=== PATIENT | male | born 1970 | race Caucasian/White ===

== ENCOUNTER 2021-07-08 16:32 | Emergency (ER) | payer OTHER, SELFPAY ==
[2021-07-08 16:33] VITALS: BP 165/91; PULSE 88; RESP 18; TEMP 37; O2SAT 96; BMI 38.7
--- NOTE | 2021-07-08 16:42 | HMH.EDUPEXT ---
ED Disposition Clinical Impression: Laceration of forearm with foreign body Qualifiers: Encounter type: initial encounter Laterality: left Qualified Code(s): S51.822A - Laceration with foreign body of left forearm, initial encounter Disposition: Home, Self-Care Condition on Discharge: Fair Instructions: How to Care for a Laceration After Repair, DI for Laceration Repair Additional Instructions: Keep the wound clean and dry. May briefly wash the wound and pat it dry. Follow-up with your primary care physician in about 3 days for a wound check. Have the sutures removed in approximately 10 days. Return to the emergency department if you feel worse in any way. Limit the use of your right upper extremity until the stitches have been taken out. Do not soak the affected area in water. Prescriptions: Ketorolac Tromethamine [Toradol 10mg tablet] 10 mg PO Q6HP PRN #8 tab MDD 40mg/day PRN Reason: Pain Transmission Status: Received by [id number] Referrals: Demetris Nelson MD [Primary Care Provider] - - Critical Care Critical Care Time: No Attestation: On , the high probability of a clinically significant, sudden or life threatening deterioration of the following system(s) required my full and direct attention, intervention and personal management. The time I documented below is in addition to time spent performing reported procedures but includes the following listed in this critical care notation. Medical Decision Making - Medical Records Medical records reviewed: Yes: I reviewed the patient's medical records. - Rell Inquiry Pt receiving controlled substance: No Vital Signs: 07/08/21 16:33 Temperature 98.6 F Temperature Source Oral Pulse Rate [Right] 88 Respiratory Rate 18 Blood Pressure [Right Arm] 165/91 H Blood Pressure Mean [Right Arm] 115 02 Sat by Pulse Oximetry 96 Oxygen Delivery Method Room Air Orders (Tests/Meds): ED MEDICATIONS Discontinued Medications Generic Name Dose Route Start Last Admin Trade Name Freq PRN Reason Stop Dose Admin Ketorolac Tromethamine 60 mg 07/08/21 17:48 07/08/21 18:00 Ketorolac 60mg/2ml Vial IM 07/08/21 17:49 60 mg ONCE ONE Administration Tetanus/Reduced Diphtheria/Acell Pertussis 0.5 ml 07/08/21 18:00 07/08/21 18:01 Tet/Diphth/Pert-Adult 0.5ml Syringe IM 07/08/21 18:01 0.5 ml .ONCE ONE Administration - Radiology Data #1 Image(s): Forearm Image Reviewed: Yes I reviewed the patient's radiology results, Yes I reviewed the patient's radiology image, Yes I have reviewed radiologist's interpretation Preliminary Findings: Abnormal (Laceration with foreign body contamination. No fracture or dislocation.) Upper Extremity HPI - General Chief Complaint: Extremity Injury, Upper Stated Complaint: ao 07/08@1615 INC TO l HAND Time Seen by Provider: 07/08/21 16:43 Mode of Arrival: Ambulatory Source of Information: Patient - History of Present Illness HPI narrative: Presents to the emergency department complaining of a left forearm injury that he sustained while working on his car. He states that the car frame struck his forearm and tore the skin. He denies any other injuries. The injury happened shortly prior to arrival today. The patient states that he is right-hand dominant. - Related Data Previous Rx's Medication Instructions Recorded Ketorolac Tromethamine [Toradol 10 mg PO Q6HP PRN #8 tab MDD 07/08/21 10mg tablet] 40mg/day Allergies Allergy/AdvReac Type Severity Reaction Status Date / Time No Known Drug Allergies Allergy Unknown Verified 07/08/21 17:05 [NO KNOWN DRUG ALLERGIES] [facility] History - Hepatitis A Screen Drug use history?: No Attestation statement:: This patient has been screened for Hepatitis A risk factors. I have reviewed the patient's past medical history: Yes ROS Obtained: Yes All systems reviewed & no additional complaints Physical Exam - General Gener
--- NOTE | 2021-07-08 16:44 | XR_ITS ---
PROCEDURE INFORMATION: Exam: XR Left Forearm Exam date and time: 07/08/2021 4:44 PM Age: 50 years old Clinical indication: Injury or trauma; Other: Accident; Work related; Arm, lower; Left; Injury date: 07/08/1985; Injury details: Laceration distal, posterior forearm; Patient HX: Deep laceration from piece of metal at distal, posterior forearm TECHNIQUE: Imaging protocol: XR Left forearm. Views: 2 views. COMPARISON: No relevant prior studies available. FINDINGS: Bones/joints: No acute fracture dislocation or discrete bony destruction is seen.. Soft tissues: Soft tissue laceration with foreign body is demonstrated along the lateral aspect of the distal radius. IMPRESSION: Soft tissue laceration with foreign body is demonstrated along the lateral aspect of the distal radius.
--- NOTE | 2021-07-08 17:10 | PC.NURSE ---
PT to XR at this time.
--- NOTE | 2021-07-08 18:12 | PC.NURSE ---
wound care provided to left wrist & fingers.
[2021-07-08 18:21] VITALS: BP 125/81; PULSE 81; RESP 16; TEMP 36.8; O2SAT 95
== END 2021-07-08 18:23 | disposition home or self-care (01) ==
PROVIDERS: Emergency Provider Emergency Medicine; PCP Family Medicine
DX: S51.822A Laceration with foreign body of left forearm, initial encounter (principal); W22.8XXA Striking against or struck by other objects, initial encounter; Y92.69 Other specified industrial and construction area as the place of occurrence of the external cause; Y99.0 Civilian activity done for income or pay; Z23 Encounter for immunization
CPT/HCPCS: 12002; 73090; 90471; 90715; 96372; 99283

== ENCOUNTER 2021-10-01 10:00 | Outpatient (RCR) | payer OTHER, SELFPAY ==
--- NOTE | 2021-08-21 11:08 | HMH.OTOPEV ---
OT Inpatient Evaluation Rehab OT Outpatient Eval Start: 08/21/21 10:31 Freq: Status: Active Protocol: Document 08/21/21 10:31 ALEJANDRA (Rec: 08/21/21 11:07 ALEJANDRA [id number]) Electronically Signed By Gretchen Cabrera OT 08/21/21 10:31 Outpatient Therapy Subjective History Subjective History 50 year old male referred to skilled OP OT services for cellulitis of left wrist and crushing injury of left wrist. Patient injured left wrist during work after dropping a car frame on wrist on July 08. 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 X-ray completed on L wrist with no findings. Patient exhibit limited AROM of wrist, pain, decrease special delivery clerk strength, edema (1+ noted) and impaired sensation on dorsal area of hand. Chief Complaint Pain,Swelling,Weakness, Decreased Disciplinary Hearing Officer Strength Symptom Type Burning,Numbness,Tingling Symptoms Relieved By Elevation Symptoms Aggravated By Physical Activity Prior Functional Limitations None Current Functional Limitations Reaching,Lifting,Sleeping, Recreation Activity Symptom Description Constant and Continuous Level of pain today (0-10) 5 Pain scale - at its best (0-10) 5 Pain scale - at its worst (0-10) 8 Wrist/Hand Eval Wrist Range of Motion Left Wrist Extension Active Range of Motion ( 50 degrees) Wrist Flexion Active Range of Motion ( 40 degrees) Wrist Radial Deviation Active Range of 20 Motion (degrees) Wrist Ulnar Deviation Active Range of 20 Motion (degrees) Forearm Supination Active Range of 60 Motion (degrees) Forearm Pronation Active Range of Motion 90 (degrees) Wrist Manual Muscle Testing Left Wrist Extension Strength Grade 3- Fair- Wrist Flexion Strength Grade 3- Fair- Wrist Radial Deviation Strength Grade 3- Fair- Wrist Ulnar Deviation Strength Grade 3- Fair- Disciplinary Hearing Officer/Pinch Strength Right Disciplinary Hearing Officer Strength Measurement (lbs) 75 Left Disciplinary Hearing Officer Strength Measurement (lbs) 20 OT Outpatient Assessment Impairments Problems/Impairments Impaired Range of Motion, Impaired Strength,Impaired Lifting,Increased Edema, Subjective C/O Pain Prognosis Rehab Potential
== END 2021-10-01 10:05 | disposition home or self-care (01) ==
LOC: OT 10:00
PROVIDERS: Visit Provider Internal Medicine Adolescent Medicine
DX: S67.3 Crushing injury of wrist (principal); L03.114 Cellulitis of left upper limb
CPT/HCPCS: 97014; 97018; 97035; 97110; 97140; 97164; 97165; 97530; G0283

== ENCOUNTER 2022-05-08 11:00 | Outpatient (RCR) | payer OTHER, SELFPAY | END 2022-05-08 11:05 | disposition home or self-care (01) | LOC: OT 11:00 | PROVIDERS: Visit Provider Physician Assistant | DX: G56.02 Carpal tunnel syndrome, left upper limb (principal) | CPT/HCPCS: 97010; 97014; 97035; 97110; 97140; 97164; 97165; G0283 ==

== ENCOUNTER 2022-07-10 13:32 | Emergency (ER) | payer BC, SELFPAY ==
[2022-07-10 13:50] VITALS: BP 159/92; PULSE 105; RESP 22; TEMP 36.8; O2SAT 97; BMI 38.2
--- NOTE | 2022-07-10 14:14 | HMH.EDUTC ---
[facility] [place] Dis[place] Clinical Impression: Exposure to COVID-19 virus, Vertigo Disposition: Home, Self-Care Condition on Discharge: Good Instructions: DI for Vertigo, DI for COVID-19 (Suspected or Confirmed ), Preventing the Spread of Coronavirus Discharge Instructions Additional Instructions: *Monitor Temp, Over the counter Motrin or Tylenol as directed/as needed Tylenol every 4 hours and Motrin every 6 hours (as long as your family doctor has told you that you can take it) for fever or pain. and straight to ER if unable to lower temp less than 101.0 after medication given *Warm salt water gargles may help to soothe the throat *Throat Lozenges *Warm fluids like tea with honey may help to soothe the throat *Sleep elevated *Humidifier/Vaporizer *Flonase 2 sprays in each nostril daily but be aware that it may take 2-3 days before you notice improvement Slow steady movements and stand slowly to help with Dizziness Do not operate heavy equiptment or drive while taking Meclizine it may make you drowsy Follow up IMMEDIATELY for new or worsening symptoms or no Noticeable improvement over the next 48-72 hours. 911 for difficulty breathing or swallowing You were tested for today for COVID19 your test result should be back in the next 24-48 hours, you may check your results on the [facility] My Health Portal Make sure to take your Vitamins Vit. C Vit D and Zinc if you can take them Prescriptions: Meclizine HCl [Antivert 25mg tablet] 25 mg PO Q8HP PRN #15 tab PRN Reason: Dizziness Transmission Status: Received by [id number] Fluticasone Propionate [Flonase 50mcg nasal spray 16gm] 1 spr NS DAILY #1 each Transmission Status: Received by [id number] Referrals: Demetris Nelson MD [Primary Care Provider] - As needed Forms: Work/School Release Medical Decision Making - Rell Inquiry Pt receiving controlled substance: No Rell was queried for this patient: No Vital Signs: 07/10/22 13:50 07/10/22 14:20 Temperature 98.2 F 98.2 F Temperature Source Oral Pulse Rate 105 H Pulse Rate [Right Brachial] 105 H Respiratory Rate 22 Blood Pressure 159/92 H Blood Pressure [Right Arm] 159/92 H Blood Pressure Mean [Right Arm] 114 Blood Pressure Source [Right Arm] Automatic Cuff Blood Pressure Position [Right Arm] Sitting 02 Sat by Pulse Oximetry 97 Oxygen Delivery Method Room Air [facility] [place] HPI - General Stated complaint: Dizzy, lightheaded Time Seen by Provider: 07/10/22 14:15 Mode of Arrival: Ambulatory Source of Information: Patient Limitations: No Limitations Description of Symptoms (Recalled from Triage Doc. by RN): PATIENT C/O DIZZINESS AND LIGHT-HEADED SINCE THURSDAY. EXPOSED TO COVID LAST WEEK HEENT Symptoms (Recalled from RN notes): Yes Resp Symptoms (Recalled from RN notes): No Skin Symptoms (Recalled from RN notes): No MS Symptoms (Recalled from RN notes): No Functional Status (Recalled from RN notes): WNL - History of Present Illness Provider Complaint: Patient states he was around someone with COVID last week States that for the last couple of days he has been having body aches, chills and dizziness on and off States that body aches and chills are better today but he is having pressure in his ears and feels like they are full and dizziness at times when he moves or stands quickly States that he feels like the room starts spinning - Related Data Previous Rx's Medication Instructions Recorded Ketorolac Tromethamine [Toradol 10 mg PO Q6HP PRN #8 tab MDD 07/08/21 10mg tablet] 40mg/day Fluticasone Propionate [Flonase 1 spr NS DAILY #1 each 07/10/22 50mcg nasal spray 16gm] Meclizine HCl [Antivert 25mg 25 mg PO Q8HP PRN #15 tab 07/10/22 tablet] Allergies Allergy/AdvReac Type Severity Reaction Status Date / Time No Known Drug Allergies Allergy Unknown Verified 07/08/21 17:05 [NO KNOWN DRUG ALLERGIES] - Worker's Comp Is this a Worker's Comp case?: No [facility] History - Hep
[2022-07-10 14:20] VITALS: BP 159/92; PULSE 105; RESP 22; TEMP 36.8; O2SAT 97
== END 2022-07-10 14:26 | disposition home or self-care (01) ==
PROVIDERS: Emergency Provider Nurse Practitioner; PCP Family Medicine
DX: U07.1 COVID-19
CPT/HCPCS: 99212; C9803; G0463; U0003; U0005

== ENCOUNTER → 2023-02-26 08:54 | Outpatient (CLI) | payer BC, OTHER, SELFPAY ==
--- NOTE | 2023-02-26 09:00 | US_ITS ---
FINAL REPORT TECHNIQUE: Sonographic images of the right upper quadrant were obtained. CLINICAL HISTORY: ELEVATED LFT COMPARISON: none FINDINGS: PANCREAS: Unremarkable. LIVER: Fatty infiltrated. No focal hepatic lesion. No intrahepatic biliary ductal dilatation. GALLBLADDER: No gallstones. No gallbladder wall thickening or pericholecystic fluid. COMMON DUCT: 3 mm. Normal for age. RIGHT KIDNEY: The right kidney measures 11.4 cm. There is no hydronephrosis, mass, or stone. FREE FLUID: None. IMPRESSION: Fatty infiltration of the liver. Reviewed, Interpreted and Dictated by Marily Mccartney MD Transcribed by Liliam Contreras Authenticated and [facility]
== END ==
PROVIDERS: PCP Family Medicine; Visit Provider Family Medicine
DX: R79.89 Other specified abnormal findings of blood chemistry (principal)
CPT/HCPCS: 76705

== ENCOUNTER 2023-06-03 04:52 | Inpatient (IN) | payer BC, OTHER, SELFPAY ==
[2023-06-03] VITALS (26 sets, daily range): BP systolic 105–155; BP diastolic 51–86; PULSE 58–98; RESP 16–22; TEMP 36.7–36.9; O2SAT 93–97; BMI 37.5; BMI 37.6
--- NOTE | 2023-06-03 04:50 | ECG_ITS ---
APPROVED REPORT Exam: Resting ECG HR:97 bpm ECG Measurements Heart Rate 97 AXES PA 166 P 68 QRSd 86 QRS 98 QT 326 T 64 QTc 380 Conclusion SINUS RHYTHM BORDERLINE RIGHT AXIS DEVIATION [QRS AXIS > 90] PATTERN CONSISTENT WITH PULMONARY DISEASE MODERATE ST DEPRESSION [0.05+ mV ST DEPRESSION] ABNORMAL ECG UNCONFIRMED REPORT Electronically signed by : Chapo Ng MD 06/04/2023 21:18:07
--- NOTE | 2023-06-03 05:07 | XR_ITS ---
PROCEDURE INFORMATION: Exam: XR Chest Exam date and time: 06/03/2023 5:04 AM Age: 52 years old Clinical indication: Pain; Chest pressure; Additional info: Chest pain TECHNIQUE: Imaging protocol: Radiologic exam of the chest. Views: 2 views. COMPARISON: ABDPELW/O CT ABD PELVIS W/O CONTRAST 07/19/2017 11:29 PM FINDINGS: Lungs: Unremarkable. No consolidation. Pleural spaces: Unremarkable. No pleural effusion. No pneumothorax. Heart/Mediastinum: Unremarkable. No cardiomegaly. Bones/joints: Unremarkable. IMPRESSION: No acute findings.
--- NOTE | 2023-06-03 05:12 | PC.NURSE ---
Pt gone to RAD via wheelchair
[2023-06-03 05:15] LABS: Basophils % 0.5 % (0.1-2.0); Eosinophils # 0.4 K/mm3 (0.0-0.4); Hematocrit 43.4 % (42.0-52.0); Hemoglobin 15.1 g/dL (14.1-18.0); Lymphocytes # 2.6 K/mm3 (0.7-4.5); Lymphocytes % 34.6 % (10-50); Mean Corpuscular HGB Conc 34.8 g/dL (31.8-35.4); Mean Corpuscular Hemoglobin 30.9 pg (27.0-31.2); Monocytes # 0.4 K/mm3 (0.1-1.0); Monocytes % 5.6 % (1.7-9.3); Neutrophils % 54.3 % (37.0-80.0); Platelet Count 267 K/mm3 (142-424); Red Blood Count 4.88 M/mm3 (4.60-6.20); Red Cell Distribution Width 14.6 % (11.5-17.5); White Blood Count 7.4 K/mm3 (4.8-10.8)
--- NOTE | 2023-06-03 05:15 | PC.NURSE ---
Pt returned from RAD
[2023-06-03 05:16] LABS: Chloride 104 mmol/L (98-107); Potassium 4.1 mmoL/L (3.5-5.1); Sodium 137 mmol/L (136-145)
[2023-06-03 05:19] LABS: Alanine Aminotransferase 39 U/L (12-78); Albumin Level 3.9 g/dl (3.5-5.0); Alkaline Phosphatase 109 U/L (38-126); Anion Gap 13.1 mEq/L (5-15); Aspartate Amino Transferase 37 U/L (17-59); Bilirubin,Direct 0.2 mg/dl (0.0-0.4); Bilirubin,Indirect 0.3 mg/dL (0.0-0.9); Bilirubin,Total 0.5 mg/dl (0.2-1.3); Bilirubin,Unconjugated 0.3 mg/dL (0.0-1.1); Blood Urea Nitrogen 13 mg/dl (9-20); Calcium 8.3 mg/dl (8.4-10.2); Carbon Dioxide 24 mmol/L (22.0-30.0); Creatinine Clearance Estimated 219 mL/min (50-200); Estimated Glomerular Filt Rate 141 ml/min (>60); GFR (African American) 171 ML/MIN (>60); Glucose 205 mg/dl (74-100); Total Protein,Serum 7.2 g/dl (6.3-8.2)
[2023-06-03 05:20] LABS: Magnesium 1.6 mg/dl (1.6-2.3)
[2023-06-03 05:24] LABS: C-Reactive Protein 5.6 mg/L (0-4)
[2023-06-03 05:33] LABS: Troponin I 0.05 ng/ml (0.00-0.034)
--- NOTE | 2023-06-03 05:36 | PC.NURSE ---
reassessed pt's chest pain after the nitro tablet and his pain was 5/10 on CRAFT CENTER DIRECTOR and now is 1/10 on CRAFT CENTER DIRECTOR.
[2023-06-03 05:38] LABS: Procalcitonin 0.057 ng/mL (0.0-2.0)
[2023-06-03 05:39] LABS: Erythrocyte Sedimentation Rate 1 mm/hr (0-20)
--- NOTE | 2023-06-03 05:42 | ECG_ITS ---
APPROVED REPORT Exam: Resting ECG HR:90 bpm ECG Measurements Heart Rate 90 AXES OR 159 P 60 QRSd 87 QRS 59 QT 344 T 59 QTc 391 Conclusion SINUS RHYTHM NORMAL ECG UNCONFIRMED REPORT Electronically signed by : Chapo Ng MD 06/04/2023 21:17:55
--- NOTE | 2023-06-03 05:44 | PC.NURSE ---
Repeat EKG obtained per MD. no changes with pain gone.
--- NOTE | 2023-06-03 05:47 | HMH.EDCP ---
Discharge Plan Disposition Patient Disposition: Admitted Chief Complaint: Chest Pain Clinical Impressions Clinical Impression: Unstable angina pectoris, Non-ST elevated myocardial infarction (non-STEMI), Diabetes, Obesity (BMI 30-39.9) Discharge ED Provider: Betzy (ED)Gui Chest Pain HPI General Chief Complaint: Chest Pain Stated Complaint: Chest pain Time Seen by Provider: 06/03/23 05:00 Mode of Arrival: Family Vehicle Source of Information: Patient and Medical Record Limitations: No Limitations Description of Symptoms (Recalled from ER Triage Doc. by RN): Pt c/o anterior chest pain that began last night at 2200 (06/02). States he may have pulled something while playing in the pool yesterday . However the pain woke him up at 0100 and again at 0400 and the pain will not dissipate. He reports the pain a sharp t/o his whole chest. Denies any SOA, dyspnea, or radiating pain. The pain is not reproducible with motion or exertion. He does report some light-headiness when the pain woke him up. He had a heart cath 2009 @ [facility] and 2 stents were placed. History of Present Illness HPI narrative: has onset of ant chest pain last pm and again later - hx of cad with stents 2009 complaint: chest pain indicative of cardiac Onset (ago): hour(s) Duration: intermittent Activity at onset: during rest Pain location: substernal Severity: moderate Quality: heaviness Risk Factors for CAD: Hypertension, Family Hx of CAD and Diabetes Treatments prior to or on arrival for Cardiac Chest Pain: none ROCIO Score for Non-Stemi Age of Patient: 50-59 years old Heart Rate: 90-109 bpm Systolic Blood Pressure: 120-139 mmhg Serum Creatinine: 0.40-0.79 mg/dl CHF Killip Class: I-No CHF Other Risk Factors: Elevated Cardiac Enzymes or Biomarkers Non-Stemi Risk Score: 108 Risk Stratification: 1-108 = Low Risk Related Data Prior Cardiac Testing/Procedures: Stenting Home Medications Medication Instructions Recorded Confirmed aspirin 81 mg tablet 81 mg PO DAILY Heart Disease 06/03/23 06/03/23 dapagliflozin propanediol 10 mg 10 mg PO DAILY Diabetes 06/03/23 06/03/23 tablet (Farxiga) ezetimibe 10 mg tablet 10 mg PO DAILY High Cholesterol 06/03/23 06/03/23 lisinopril 10 mg tablet 10 mg PO BID High Blood Pressure 06/03/23 06/03/23 metformin 500 mg tablet 500 mg PO BID Diabetes 06/03/23 06/03/23 Allergies Allergy/AdvReac Type Severity Reaction Status Date / Time No Known Drug Allergies Allergy Unknown Verified 07/08/21 17:05 [NO KNOWN DRUG ALLERGIES] [facility] Disclaimer: The information contained in this section may have been updated after the patient was seen, as this information can be updated by other users. Social History Smoking Status: Former smoker alcohol intake: never current occupational status: other Travel in the last 8 weeks: None ROS Obtained: Yes All systems reviewed & no additional complaints except as documented Physical Exam General General appearance: alert Head Head exam: normocephalic Eye Eye exam: Present PERRL and EOMI ENT ENT exam: Present mucous membranes moist Neck Neck exam: Present trachea midline Respiratory Respiratory exam: Present normal lung sounds bilaterally; Absent respiratory distress Cardiovascular Cardiovascular exam: Present regular rate and systolic murmur Abdominal Exam Abdominal exam: Present soft; Absent tenderness Extremities Exam Extremities exam: Present full ROM Neurological Exam Neurological exam: Present alert, oriented X3 and CN II-XII intact; Absent motor sensory deficit Psychiatric Psychiatric exam: Present normal affect Skin Skin exam: Absent rash Medical Decision Making Medical Records Medical records reviewed: Yes I reviewed the patient's medical records. Rell Inquiry Pt receiving controlled substance: No Vital Signs: 06/03/23 04:53 06/03/23 05:01 06/03/23 05:31 Temperature 98.1 F Temperature Source Oral Pulse Rate 96
[2023-06-03 05:49] LABS: Coronavirus 19, PCR Not Detected (NotDetected); Influenza A, PCR Not Detected (NotDetected); Influenza B, PCR Not Detected (NotDetected)
--- NOTE | 2023-06-03 05:52 | PC.NURSE ---
Dr. Bo at
--- NOTE | 2023-06-03 05:54 | PC.NURSE ---
Dr. Omar rodriguez
--- NOTE | 2023-06-03 05:55 | PC.NURSE ---
Dr. Bo s/w Dr. Nelson for admission
--- NOTE | 2023-06-03 05:57 | PC.NURSE ---
Notified house of pt admission
--- NOTE | 2023-06-03 05:58 | PC.NURSE ---
Dr. Bo s/w Dr. Watkins
--- NOTE | 2023-06-03 05:58 | PC.NURSE ---
PATIENT ADMITTED TO [address] CASTRO WITH DX OF UNSTABLE OF ANGINA.
--- NOTE | 2023-06-03 06:13 | PC.NURSE ---
called report to Zee Townsend RN on 2nd floor
[2023-06-03 06:27] LABS: Chol/HDL Ratio 8.4 (1-3.5); Cholesterol 193 mg/dl (140-200); HDL Cholesterol 23 mg/dl (40-60)
--- NOTE | 2023-06-03 06:38 | PC.NURSE ---
pt arrived to floor at this time
[2023-06-03 06:46] LABS: Triglycerides 1421 mg/dl (30-150)
--- NOTE | 2023-06-03 07:23 | IR_ITS ---
APPROVED REPORT Patient Location: Inpatient Wellness Educator: IFEANYI Gore RT (R) PROCEDURES Left heart catheterization Left ventriculogram Selective coronary angiogram Mechanical thrombectomy to the proximal dominant right coronary Intravascular lithotripsy to the dominant right coronary Drug-eluting stent deployment to the proximal and mid dominant right coronary in a contiguous manner INDICATION Acute non-ST elevation myocardial infarction, Coronary artery disease Informed consent was obtained prior to the procedure. COMPLICATIONS None Estimated Blood Loss: Less than 10 mls TECHNIQUE One percent lidocaine used to anesthetize the right anterior aspect of the wrist. The right radial artery was accessed via the Seldinger technique. A 6 [place] sheath was placed in the right radial artery. 150 mg magnesium sulfate, 800 mcg of nitroglycerin, 1mg Lidocaine and 5000 U Heparin were given through the arterial sheath. The papa catheter was also used to perform left heart catheterization, left ventriculogram and selective coronary angiogram. At the end the diagnostic angiogram therapeutic heparin was administered giving a therapeutic ACT and the guide catheter was placed in the right coronary followed by Choice PT extra-support wire. Initial impression of. There was heavy thrombus burden in the mid dominant right coronary artery therefore a penumbra catheter was advanced. The penumbra catheter would not go beyond the stenotic area which suggested this was more calcification than a thrombus. The penumbra did not remove any particular matter with the aspiration. At this point a 4 mm x 12 mm shockwave lithotripsy balloon was advanced and deployed at 5,6,8 and 10 ethan for a total of 80 pulsations. Following this a 5 mm x 30 mm Pelham frontier stent was deployed at 18 ethan reducing the stenosis. An additional 5 mm x 30 mm Pelham frontier stent was placed proximal to the for stent yet still overlapping the for stent and deployed at 20 ethan. The balloon was advanced and deployed at 20 ethan. Excellent angiographic results were obtained with the critical stenosis being reduced to 0% with 2 contiguous drug-eluting stents. At the end of the procedure the apparatus was removed the sheath was removed and hemostasis was achieved using TR banding patient was transferred to the postop holding in stable condition ANGIOGRAPHIC RESULTS The left main artery Normal The left anterior descending artery Has a stent in the proximal segment which is widely patent with minimal 20% in-stent restenosis. The caliber the LAD is small. It does give rise to a large first diagonal artery. Distal to the first diagonal artery the small caliber LAD then has diffuse 20 to 30% stenoses The circumflex artery Is a nondominant vessel and gives rise to a small to medium size ramus intermedius which has a proximal 30% stenosis. The first obtuse marginal artery is small and has a mid vessel 30% stenosis The right coronary artery Is a massively large dominant vessel and has a critical 90% complex mid vessel stenosis. Distally there are diffuse 20% stenoses. The ANTUNEZ ventriculogram reveals Not performed The left ventricular end-diastolic pressure Not measured IMPRESSION Critical densely calcified mid dominant right coronary artery stenosis Successful intravascular lithotripsy reducing the critically calcified diseased stenosis to 0% with 2 contiguous drug-eluting stents Persistent mild to moderate disease in the left system as described above PLAN 1. Dual antiplatelet therapy 2. LDL less than 55 to be achieved with high intensity statin 3. Avoidance of tobacco products 4. Risk factor modification 5. Cardiac rehabilitation Electronically signed by : Irineo Watkins MD 06/03/2023 14:59:59
--- NOTE | 2023-06-03 07:29 | HMH.PHAINT1 ---
Pharmacy Intervention Comments: MEDICATION RECONCILIATION COMPLETED ON PATIENT USING EXTERNAL FILL HISTORY FROM PHARMACY. -SUJATA REAL, NIRAJD
--- NOTE | 2023-06-03 08:18 | EXP.HP ---
History of Present Illness *Admission Date: 06/03/23 *Reason for visit:: chest pain *History of present illness: Pt c/o anterior chest pain that began last night at 2200 (06/02). States he may have pulled something while playing in the pool yesterday . However the pain woke him up at 0100 and again at 0400 and the pain will not dissipate. He reports the pain a sharp t/o his whole chest. Denies any SOA, dyspnea, or radiating pain. The pain is not reproducible with motion or exertion. He does report some light-headiness when the pain woke him up. He had a heart cath 2009 @ [facility] and 2 stents were placed. (above as per ER physician) Patient's chest pain has improved this am but he is having a headache from the nitro. He is apparently scheduled for a heart cath this am. [facility] Disclaimer: The information contained in this section may have been updated after the patient was seen, as this information can be updated by other users. Medical History (Updated 06/03/23 @ 08:41 by Roxanne Whitlock APRN) Angina pectoris CAD in [place] artery Diabetes mellitus, type 2 History of chest pain History of left heart catheterization Hyperlipidemia Hypertension Kidney stone Pneumonia Surgical History (Updated 06/03/23 @ 08:38 by Roxanne Whitlock APRN) History of surgery on wrist Hx of cataract surgery Stented coronary artery Family History (Updated 06/03/23 @ 08:39 by Roxanne Whitlock APRN) Family history of acute congestive heart failure Coronary artery disease Heart attack Family history of hypertension Family history of hyperlipidemia Social History (Updated 06/03/23 @ 08:39 by Roxanne Whitlock APRN) Smoking Status: Former smoker how long ago did patient quit smokin years ago alcohol intake: never current occupational status: employed and other Travel in the last 8 weeks: None Review of Systems Constitutional Constitutional: Denies body ache(s), Denies fatigue, Denies fever(s), Reports headache(s) and Denies weakness Eyes Eyes: Denies blurry vision and Denies diplopia ENT Ears, Nose, Mouth, and Throat: Reports headache(s), Denies nasal congestion, Denies sore throat and Reports vertigo *Cardiovascular Cardiovascular: Reports chest pain at rest, Denies dyspnea, Denies irregular heart rhythm, Denies leg edema, Reports lightheadedness, Denies rapid heart rate and Denies syncope *Respiratory Respiratory: Denies cough and Denies dyspnea *Gastrointestinal Gastrointestinal: Denies abdominal pain, Denies loose stools, Denies nausea and Denies vomiting *Genitourinary Genitourinary: Denies difficulty urinating and Denies dysuria *Musculoskeletal Musculoskeletal: Denies arthralgias and Denies myalgias *Neurologic Neurologic: Reports headache(s), Denies syncope, Reports vertigo and Denies weakness Endocrine Endocrine: Denies fatigue Meds Home Medications and Allergies Home Medications Medication Instructions Recorded Confirmed Type aspirin 81 mg tablet,delayed 81 mg PO DAILY HEART HEALTH 06/03/23 06/03/23 History release dapagliflozin propanediol 10 mg 10 mg PO DAILY Diabetes 06/03/23 06/03/23 History tablet (Farxiga) ezetimibe 10 mg tablet 10 mg PO DAILY Cholesterol 06/03/23 06/03/23 History lisinopril 10 mg tablet 10 mg PO BID Hypertension 06/03/23 06/03/23 History metformin 500 mg tablet 500 mg PO DAILY Diabetes 06/03/23 06/03/23 History New Prescriptions to Start Prescriptions: Allergies Allergy/AdvReac Type Severity Reaction Status Date / Time No Known Drug Allergies Allergy Unknown Verified 07/08/21 17:05 [NO KNOWN DRUG ALLERGIES] Exam Data for Last 24 hours Vital signs and Labs for Last 24 Hours: Temp Pulse Resp BP Pulse Ox 98.5 F 86 22 132/63 94 L 06/03/23 07:01 06/03/23 07:01 06/03/23 07:01 06/03/23 07:01 06/03/23 07:01 Laboratory Results - last 24 hr 06/03/23 04:56: WBC 7.4, RBC 4.88, Hgb 15.1, Hct 43.4, MCV 89.0, MCH 30.9, MCHC 34.8, RDW 14.6, Plt
--- NOTE | 2023-06-03 08:36 | EXP.CARD.CON ---
History of Present Illness History of Present Illness Consult date: 06/03/23 Requesting physician: Rocky Guillory Consult reason: chest pain Chief complaint: chest pain History of present illness: This is a 52-year-old white gentleman who presented to the emergency department complaints of chest pain. He states that his chest pain started last night around 10 PM on 02 June. The patient states that initially he thought he just pulled something in his chest while playing in the pool yesterday. He states that this was a constant pain sensation across the entire anterior aspect of his chest. He states that this was a pressure pain. He states that he fell off to sleep and then the chest pain woke him up again around 4 AM. He states that it had been constant since it started. He denies any associated shortness of breath, nausea or diaphoresis. He states nothing worsened his pain and nothing was helping to improve the pain until he came to the emergency department here. Once he was treated with medications in the emergency department his chest pain resolved. His initial troponin is elevated consistent with a non-STEMI. Of note, the patient did have a heart cath in 2009 at [facility] where he had 2 stents placed at that time. He has not had any cardiology follow-up since that time. He does report having a headache now from the nitroglycerin but states his chest pain has now resolved. He denies any lower extremity edema. He denies any shortness of breath. He denies any fever, chills, nausea, vomiting, diarrhea, PND or orthopnea. [facility] Disclaimer: The information contained in this section may have been updated after the patient was seen, as this information can be updated by other users. Medical History (Updated 06/03/23 @ 08:41 by Roxanne Whitlock APRN) Angina pectoris CAD in [place] artery Diabetes mellitus, type 2 History of chest pain History of left heart catheterization Hyperlipidemia Hypertension Kidney stone Pneumonia Surgical History (Updated 06/03/23 @ 08:38 by Roxanne Whitlock APRN) History of surgery on wrist Hx of cataract surgery Stented coronary artery Family History (Updated 06/03/23 @ 08:39 by Roxanne Whitlock APRN) Other Coronary artery disease Family history of acute congestive heart failure Family history of hyperlipidemia Family history of hypertension Heart attack Social History (Updated 06/03/23 @ 08:39 by Roxanne Whitlock APRN) Smoking Status: Former smoker how long ago did patient quit smokin years ago alcohol intake: never current occupational status: employed and other Travel in the last 8 weeks: None Review of Systems Review of Systems Review of systems:: pertinent systems reviewed and negative unless documented below Constitutional Constitutional: Reports system reviewed and no additional complaints, except as documented and Reports headache(s) Eyes Eyes: Reports system reviewed and no additional complaints, except as documented ENT Ears, Nose, Mouth, and Throat: Reports system reviewed and no additional complaints, except as documented and Reports headache(s) *Cardiovascular Cardiovascular: Reports system reviewed and no additional complaints, except as documented, Reports chest pain, Reports chest pain at rest, Reports chest pain with activity, Denies dyspnea, Denies dyspnea on exertion, Denies leg edema and Denies palpitations *Respiratory Respiratory: Reports system reviewed and no additional complaints, except as documented, Denies dyspnea and Denies dyspnea on exertion *Gastrointestinal Gastrointestinal: Reports system reviewed and no additional complaints, except as documented *Genitourinary Genitourinary: Reports system reviewed and no additional complaints, except as documented *Musculoskeletal Musculoskeletal: Reports system reviewed and no additional complaints, except as documented Integumentary/Breasts Skin/Breast: Reports system reviewed and no additional comp
[2023-06-03 10:58] LABS: POC Glucose,Bedside 194 (70-110)
--- NOTE | 2023-06-03 14:06 | PC.NURSE ---
PT TO [facility] VIBRATOR AT THIS TIME
[2023-06-03 15:17] LABS: CATHL Activated Clotting Time 284 SEC (74-125)
--- NOTE | 2023-06-03 15:54 | PC.NURSE ---
A&OX4. TOLERATING RA WELL. INDEPENDENT IN ROOM. AT BEDSIDE. BACK FROM PROCEDURE, TOLERATED WELL. R WRIST CATH SITE PRESENT. NO C/O THUS FAR SINCE ARRIVAL BACK TO FLOOR. REQUESTED SNACK. VSS.
[2023-06-03 16:26] LABS: POC Glucose,Bedside 186 (70-110)
[2023-06-03 20:06] LABS: POC Glucose,Bedside 215 (70-110)
[2023-06-04] VITALS: BP 113/52; PULSE 65; PULSE 70; RESP 20; TEMP 36.6; O2SAT 94
[2023-06-04 04:00] VITALS: BP 140/68; PULSE 77; PULSE 80; RESP 16; TEMP 36.4; O2SAT 93; BMI 38.9
[2023-06-04 06:22] LABS: POC Glucose,Bedside 162 (70-110)
[2023-06-04 06:26] LABS: Anion Gap 10.8 mEq/L (5-15); Blood Urea Nitrogen 9 mg/dl (9-20); Calcium 7.9 mg/dl (8.4-10.2); Carbon Dioxide 22 mmol/L (22.0-30.0); Chloride 107 mmol/L (98-107); Creatinine Clearance Estimated 227 mL/min (50-200); Estimated Glomerular Filt Rate 141 ml/min (>60); GFR (African American) 171 ML/MIN (>60); Glucose 154 mg/dl (74-100); Potassium 3.8 mmoL/L (3.5-5.1); Sodium 136 mmol/L (136-145)
[2023-06-04 06:40] LABS: Basophils % 0.4 % (0.1-2.0); Eosinophils # 0.3 K/mm3 (0.0-0.4); Eosinophils % 3.6 % (0.1-12.0); Hematocrit 39.2 % (42.0-52.0); Hemoglobin 13.4 g/dL (14.1-18.0); Lymphocytes % 26.5 % (10-50); Mean Corpuscular HGB Conc 34.2 g/dL (31.8-35.4); Mean Corpuscular Hemoglobin 30.3 pg (27.0-31.2); Mean Corpuscular Volume 88.8 fl (80-94); Mean Platelet Volume 8.2 fl (7.4-10.4); Monocytes # 0.4 K/mm3 (0.1-1.0); Neutrophils # 4.7 K/mm3 (1.8-7.8); Neutrophils % 63.5 % (37.0-80.0); Platelet Count 219 K/mm3 (142-424); Red Blood Count 4.42 M/mm3 (4.60-6.20); Red Cell Distribution Width 14.9 % (11.5-17.5); White Blood Count 7.4 K/mm3 (4.8-10.8)
[2023-06-04 08:00] VITALS: BP 160/93; PULSE 82; RESP 18; TEMP 36.7; O2SAT 93; O2SAT 97
--- NOTE | 2023-06-04 08:21 | EXP.ACUTE.PN ---
Subjective *Date: 06/04/23 *Time: 08:55 Interval history: Patient received 2 stents yesterday and is feeling well this am. Denies any chest pain or SOA. He has been eating well but did not rest. He wants to go home. Medical Exam Vital signs and Labs for Last 24 Hours: Vital Signs Temp Pulse Pulse Resp BP BP Pulse Ox 06/04/23 08:00 98.1 F 82 18 160/93 H 93 L 06/04/23 04:00 80 06/04/23 04:00 97.5 F L 77 16 140/68 93 L 06/03/23 22:15 58 L 18 115/69 96 06/03/23 21:15 64 16 137/74 96 06/04/23 00:00 70 06/03/23 20:00 60 06/04/23 00:00 97.9 F 65 20 113/52 L 94 L 06/03/23 20:15 61 18 119/68 96 06/03/23 19:15 64 18 120/76 95 06/03/23 18:15 63 17 147/86 H 95 06/03/23 17:45 67 16 121/66 95 06/03/23 17:15 60 16 105/51 L 94 L 06/03/23 16:45 65 17 117/69 93 L 06/03/23 16:15 65 17 113/73 93 L 06/03/23 16:00 65 17 142/77 H 94 L 06/03/23 15:45 60 17 117/64 93 L 06/03/23 15:30 60 17 114/65 93 L 06/03/23 16:00 70 06/03/23 15:15 62 18 122/72 95 06/03/23 15:10 64 18 125/63 93 L 06/03/23 15:05 65 18 124/73 95 06/03/23 15:06 67 80 18 126/71 94 L 06/03/23 13:03 98.2 F 64 16 106/51 L 97 06/03/23 12:00 60 Intake and Output 06/03/23 06/04/23 06/04/23 19:59 03:59 11:59 Intake Total 0 / 340 340 / 340 Output Total 0 / 0 0 / 0 Balance 0 / 340 0 / 340 340 / 340 Intake: Intake, Oral Amount 0 / 240 240 / 240 Intake, Total IV Amount 100 / 100 0.9 % Sodium Chloride 1000ML 1, 100 / 100 000 ml @ 100 mls/hr IV .Q10H [facility] Rx#:[id number] Output: Output, Urine Amount 0 / 0 0 / 0 Other: Number of Unmeasured Voids 1 1 Weight 248 lb 1 oz Patient Weight 06/04/23 11:59 Weight 248 lb 1 oz Laboratory Results - last 24 hr 06/03/23 08:20: Troponin I 0.60 H 06/03/23 10:49: POC Glucose 194 H 06/03/23 11:28: Troponin I 1.20 H 06/03/23 14:35: Activated Clotting Time 284 H* 06/03/23 16:15: POC Glucose 186 H 06/03/23 19:58: POC Glucose 215 H 06/04/23 05:33: WBC 7.4, RBC 4.42 L, Hgb 13.4 L, Hct 39.2 L, MCV 88.8, MCH 30.3, MCHC 34.2, RDW 14.9, Plt Count 219, MPV 8.2, Neut % (Auto) 63.5, Lymph % (Auto) 26.5, [place] % (Auto) 6.0, Eos % (Auto) 3.6, Baso % (Auto) 0.4, Neut # (Auto) 4.7, Lymph # (Auto) 2.0, [place] # (Auto) 0.4, Eos # (Auto) 0.3, Baso # (Auto) 0.0, Sodium 136, Potassium 3.8, Chloride 107, Carbon Dioxide 22, Anion Gap 10.8, BUN 9 D, Creatinine 0.60 L, Estimated Creat Clear 227, Estimated GFR 141, Est GFR ( Amer) 171, Glucose 154 H, Calcium 7.9 L 06/04/23 06:14: POC Glucose 162 H I & O for Labs for Last 24 Hours: Intake & Output 06/01/23 06/02/23 06/03/23 06/04/23 11:59 11:59 11:59 11:59 Intake Total 1000 / 1000 340 / 340 Output Total 0 / 0 0 / 0 Balance 1000 / 1000 340 / 340 Weight 240 lb 0.488 oz 248 lb 1 oz Constitutional: Present no acute distress Respiratory: Present CTA bilaterally Cardiac: Present Reg Rate and Rhythm GI: Present soft and normal bowel sounds; Absent distention or tenderness Extremities: Absent edema, clubbing or cyanosis Skin: Present intact Neuro: Present alert and awake Assessment and Plan *Assessment and plan (1) Non-ST elevated myocardial infarction (non-STEMI): Status: Acute Category: Medical Code(s): I21.4 - Non-ST elevation (NSTEMI) myocardial infarction (2) Angina pectoris: Status: Acute Category: Medical Code(s): I20.9 - Angina pectoris, unspecified (3) CAD in [place] artery: Status: Acute Category: Medical Code(s): I25.10 - Atherosclerotic heart disease of [place] coronary artery without angina pectoris (4) Stented coronary artery: Status: Acute Category: Surgical Code(s): Z95.5 - Presence of coronary angioplasty implant and graft (5) Hypertension: Status: Acute
--- NOTE | 2023-06-04 09:51 | EXP.CARD.HP ---
History of Present Illness *Admission Date: 06/03/23 Review of Systems Constitutional Constitutional: Reports headache(s) and Denies weakness ENT Ears, Nose, Mouth, and Throat: Reports headache(s) and Reports vertigo *Cardiovascular Cardiovascular: Denies syncope *Neurologic Neurologic: Reports system reviewed and no additional complaints, except as documented, Reports headache(s), Denies syncope, Reports vertigo and Denies weakness Meds Home Medications and Allergies Home Medications Medication Instructions Recorded Confirmed Type aspirin 81 mg tablet,delayed 81 mg PO DAILY HEART HEALTH 06/03/23 06/03/23 History release dapagliflozin propanediol 10 mg 10 mg PO DAILY Diabetes 06/03/23 06/03/23 History tablet (Farxiga) ezetimibe 10 mg tablet 10 mg PO DAILY Cholesterol 06/03/23 06/03/23 History lisinopril 10 mg tablet 10 mg PO BID Hypertension 06/03/23 06/03/23 History metformin 500 mg tablet 500 mg PO DAILY Diabetes 06/03/23 06/03/23 History New Prescriptions to Start Prescriptions: Allergies Allergy/AdvReac Type Severity Reaction Status Date / Time No Known Drug Allergies Allergy Unknown Verified 07/08/21 17:05 [NO KNOWN DRUG ALLERGIES] Exam Data for Last 24 hours Vital signs and Labs for Last 24 Hours: Temp Pulse Resp BP Pulse Ox 98.1 F 82 18 160/93 H 97 06/04/23 08:00 06/04/23 08:00 06/04/23 08:00 06/04/23 08:00 06/04/23 08:00 Laboratory Results - last 24 hr 06/03/23 10:49: POC Glucose 194 H 06/03/23 11:28: Troponin I 1.20 H 06/03/23 14:35: Activated Clotting Time 284 H* 06/03/23 16:15: POC Glucose 186 H 06/03/23 19:58: POC Glucose 215 H 06/04/23 05:33: WBC 7.4, RBC 4.42 L, Hgb 13.4 L, Hct 39.2 L, MCV 88.8, MCH 30.3, MCHC 34.2, RDW 14.9, Plt Count 219, MPV 8.2, Neut % (Auto) 63.5, Lymph % (Auto) 26.5, [place] % (Auto) 6.0, Eos % (Auto) 3.6, Baso % (Auto) 0.4, Neut # (Auto) 4.7, Lymph # (Auto) 2.0, [place] # (Auto) 0.4, Eos # (Auto) 0.3, Baso # (Auto) 0.0, Sodium 136, Potassium 3.8, Chloride 107, Carbon Dioxide 22, Anion Gap 10.8, BUN 9 D, Creatinine 0.60 L, Estimated Creat Clear 227, Estimated GFR 141, Est GFR ( Amer) 171, Glucose 154 H, Calcium 7.9 L 06/04/23 06:14: POC Glucose 162 H I & O for Last 24 hours: Intake & Output 06/01/23 06/02/23 06/03/23 06/04/23 23:59 23:59 23:59 23:59 Intake Total 1000 / 1000 340 / 340 Output Total 0 / 0 0 / 0 Balance 1000 / 1000 340 / 340 Weight 240 lb 0.488 oz 248 lb 1 oz Results Labs and Meds 06/04/23 05:33 06/04/23 05:33 Lab results: Cardiac Enzymes 06/03/23 Range/Units 11:28 Troponin I 1.20 H (0.00-0.034) ng/ml CBC 06/04/23 Range/Units 05:33 WBC 7.4 (4.8-10.8) K/mm3 RBC 4.42 L (4.60-6.20) M/mm3 Hgb 13.4 L (14.1-18.0) g/dL Hct 39.2 L (42.0-52.0) % Plt Count 219 (142-424) K/mm3 Neut # (Auto) 4.7 (1.8-7.8) K/mm3 Lymph # (Auto) 2.0 (0.7-4.5) K/mm3 [place] # (Auto) 0.4 (0.1-1.0) K/mm3 Eos # (Auto) 0.3 (0.0-0.4) K/mm3 Baso # (Auto) 0.0 (0-0.2) K/mm3 Comprehensive Metabolic Panel 06/04/23 Range/Units 05:33 Sodium 136 (136-145) mmol/L Potassium 3.8 (3.5-5.1) mmoL/L Chloride 107 (98-107) mmol/L Carbon Dioxide 22 (22.0-30.0) mmol/L BUN 9 D (9-20) mg/dl Creatinine 0.60 L (0.66-1.25) mg/dl Glucose 154 H (74-100) mg/dl Calcium 7.9 L (8.4-10.2) mg/dl Intake and Output 06/03/23 06/04/23 06/04/23 23:59 07:59 15:59 Intake Total 0 / 1000 100 / 340 240 / 340 Output Total 0 / 0 0 / 0 Balance 0 / 1000 100 / 340 240 / 340 Intake: Intake, Oral Amount 0 / 0 240 / 240 Intake, Total IV Amount 100 / 100 0.9 % Sodium Chloride 1000ML 1, 100 / 100 000 ml @ 100 mls/hr IV .Q10H [facility] Rx#:[id number] Output: Output, Urine Amount 0 / 0 0 / 0 Other: Number of Unmeasured Voids 1 1 Weight 248 lb 1 oz Patient Weight 06/04/23 23:59 Weight 248 lb 1 oz [facility] Pre-cath Cr
--- NOTE | 2023-06-04 09:53 | EXP.CARD.PN ---
Subjective Subjective Date: 06/04/23 Time: 08:15 Principal diagnosis: non-stemi, CAD Interval history: This is a 52-year-old white gentleman who presented to the emergency department complaints of chest pain. The patient was found to have a non-STEMI. He was taken to the cardiac catheterization laboratory yesterday and had 2 stents placed to the right coronary artery. The patient tolerated the procedure well. This morning he denies any chest pain or pressure. He denies any shortness of breath or edema. The patient has some tenderness at his right radial site but no pain and no hematoma. The patient is ready for discharge home today. He denies any fever, chills, nausea, vomiting, diarrhea, PND or orthopnea. Exam Data for Last 24 hours Vital signs and Labs for Last 24 Hours: Temp Pulse Resp BP Pulse Ox 98.1 F 82 18 160/93 H 97 06/04/23 08:00 06/04/23 08:00 06/04/23 08:00 06/04/23 08:00 06/04/23 08:00 Laboratory Results - last 24 hr 06/03/23 10:49: POC Glucose 194 H 06/03/23 11:28: Troponin I 1.20 H 06/03/23 14:35: Activated Clotting Time 284 H* 06/03/23 16:15: POC Glucose 186 H 06/03/23 19:58: POC Glucose 215 H 06/04/23 05:33: WBC 7.4, RBC 4.42 L, Hgb 13.4 L, Hct 39.2 L, MCV 88.8, MCH 30.3, MCHC 34.2, RDW 14.9, Plt Count 219, MPV 8.2, Neut % (Auto) 63.5, Lymph % (Auto) 26.5, [place] % (Auto) 6.0, Eos % (Auto) 3.6, Baso % (Auto) 0.4, Neut # (Auto) 4.7, Lymph # (Auto) 2.0, [place] # (Auto) 0.4, Eos # (Auto) 0.3, Baso # (Auto) 0.0, Sodium 136, Potassium 3.8, Chloride 107, Carbon Dioxide 22, Anion Gap 10.8, BUN 9 D, Creatinine 0.60 L, Estimated Creat Clear 227, Estimated GFR 141, Est GFR ( Amer) 171, Glucose 154 H, Calcium 7.9 L 06/04/23 06:14: POC Glucose 162 H I & O for Last 24 hours: Intake & Output 06/01/23 06/02/23 06/03/23 06/04/23 23:59 23:59 23:59 23:59 Intake Total 1000 / 1000 340 / 340 Output Total 0 / 0 0 / 0 Balance 1000 / 1000 340 / 340 Weight 240 lb 0.488 oz 248 lb 1 oz Narrative: Left heart cath shows: The left main artery Normal The left anterior descending artery Has a stent in the proximal segment which is widely patent with minimal 20% in-stent restenosis. The caliber the LAD is small. It does give rise to a large first diagonal artery. Distal to the first diagonal artery the small caliber LAD then has diffuse 20 to 30% stenoses The circumflex artery Is a nondominant vessel and gives rise to a small to medium size ramus intermedius which has a proximal 30% stenosis. The first obtuse marginal artery is small and has a mid vessel 30% stenosis The right coronary artery Is a massively large dominant vessel and has a critical 90% complex mid vessel stenosis. Distally there are diffuse 20% stenoses. The ANTUNEZ ventriculogram reveals Not performed The left ventricular end-diastolic pressure Not measured IMPRESSION Critical densely calcified mid dominant right coronary artery stenosis Successful intravascular lithotripsy reducing the critically calcified diseased stenosis to 0% with 2 contiguous drug-eluting stents Persistent mild to moderate disease in the left system as described above PLAN 1. Dual antiplatelet therapy 2. LDL less than 55 to be achieved with high intensity statin 3. Avoidance of tobacco products 4. Risk factor modification 5. Cardiac rehabilitation Constitutional Constitutional: no acute distress and obese *Routine HEENT Exam Head: Present normocephalic and atraumatic ENT: Present mucous membranes moist *Routine Neck Exam Neck: Present supple, full ROM and normal carotid upstroke; Absent JVD, carotid bruit or lymphadenopathy *Routine Respiratory Exam Respiratory: Present CTA bilaterally, normal respiratory effort, able to speak in complete sentences and symmetric chest movement *Routine Cardiovascular Exam Cardiovascular: Present RRR, Normal S1 and Normal S2; Absent murmur or gallop *Routine Abdominal Exam Abdominal: Present soft and normoactive bow
[2023-06-04 10:21] LABS: POC Glucose,Bedside 198 (70-110)
[2023-06-04 11:47] VITALS: BP 148/81; PULSE 78; RESP 18; TEMP 36.6; O2SAT 92
[2023-06-04 12:00] VITALS: PULSE 70
--- NOTE | 2023-06-04 15:14 | [facility].PHAINT1 ---
Pharmacy Intervention Comments: Discharge medication reviewed with patient and patient's . - Clopidogrel 75mg started (told to watch for bleeding and bruising) - Atorvastatin 40mg (told to watch for muscle pain) - Carvedilol 6.25mg (told to watch for sluggishness and to stand up slowly after laying or sitting) Continued home meds
--- NOTE | 2023-06-05 08:38 | EXP.DC.SUM ---
General Admission date:: 06/03/23 Discharge date: 06/04/23 HPI HPI HPI: Pt c/o anterior chest pain that began last night at 2200 (06/02). States he may have pulled something while playing in the pool yesterday . However the pain woke him up at 0100 and again at 0400 and the pain will not dissipate. He reports the pain a sharp t/o his whole chest. Denies any SOA, dyspnea, or radiating pain. The pain is not reproducible with motion or exertion. He does report some light-headiness when the pain woke him up. He had a heart cath 2009 @ [facility] and 2 stents were placed. (above as per ER physician) Patient's chest pain has improved this am but he is having a headache from the nitro. He is apparently scheduled for a heart cath this am. Hospital Course Hospital Course Hospital Course: The patient's chest x-ray showed nothing acute. He had an elevated troponin consistent with a non-STEMI and he was taken for a heart cath. He had 2 stents placed in his right coronary artery and was started on Plavix and aspirin for dual antiplatelet therapy. His echo showed an EF of 47% with grade 1 diastolic dysfunction. His carvedilol dose was increased and he was started back on his lisinopril. By 06/04/2023, he was feeling well and wanted to go home. He was stable to discharge and will follow up with cardiology. Exam Data for Last 24 hours Vital signs and Labs for Last 24 Hours: Temp Pulse Resp BP Pulse Ox O2 Del Method 97.8 F 70 18 148/81 H 92 L Room Air 06/04/23 11:47 06/04/23 12:00 06/04/23 11:47 06/04/23 11:47 06/04/23 11:47 06/04/23 14:21 Laboratory Results - last 24 hr 06/04/23 10:13: POC Glucose 198 H I & O for Last 24 hours: Intake & Output 06/02/23 06/03/23 06/04/23 06/05/23 11:59 11:59 11:59 11:59 Intake Total 1000 / 1000 340 / 340 120 / 120 Output Total 0 / 0 0 / 0 Balance 1000 / 1000 340 / 340 120 / 120 Weight 240 lb 0.488 oz 248 lb 1 oz Narrative: Constitutional Constitutional: no acute distress *Routine HEENT Exam Head: Present normocephalic and atraumatic Eye: Present EOMI and PERRL ENT: Present mucous membranes moist *Routine Neck Exam Neck: Present supple and full ROM *Routine Respiratory Exam Respiratory: Present CTA bilaterally *Routine Cardiovascular Exam Cardiovascular: Present RRR *Routine Abdominal Exam Abdominal: Present soft and normoactive bowel sounds; Absent tenderness *Routine Rectal Exam Rectal:: deferred *Routine Genitalia Exam Genitalia:: deferred *Routine Extremities Exam Extremities: Absent cyanosis, clubbing or edema *Routine Skin Exam Skin: Present intact; Absent erythema *Routine Neurological Exam Neurological: Present alert and oriented X3 Results Data Completed and Pending Labs on day of discharge: Labs from last 24 hours 06/04/23 10:13 POC Glucose 198 H DS: Diagnosis Discharge Diagnosis (1) Non-ST elevated myocardial infarction (non-STEMI): Status: Acute Code(s): I21.4 - Non-ST elevation (NSTEMI) myocardial infarction (2) CAD in [place] artery: Status: Acute Code(s): I25.10 - Atherosclerotic heart disease of [place] coronary artery without angina pectoris (3) Stented coronary artery: Status: Acute Code(s): Z95.5 - Presence of coronary angioplasty implant and graft (4) Hypertension: Status: Acute Code(s): I10 - Essential (primary) hypertension Qualifiers: Hypertension type: primary hypertension Qualified Code(s): I10 - Essential (primary) hypertension (5) Hyperlipidemia: Status: Acute Code(s): E78.5 - Hyperlipidemia, unspecified Qualifiers: Hyperlipidemia type: mixed hyperlipidemia Qualified Code(s): E78.2 - Mixed hyperlipidemia (6) Diabetes mellitus, type 2: Status: Acute Code(s): E11.9 - Type 2 diabetes mellitus without complications Qualifiers: Diabetes mellitus complication status: without complicati
--- NOTE | 2023-06-08 13:08 | CARE MANAGER ---
Contacted patient related to hospital discharge. He states he is doing very well. He has all his new medications and is aware of his follow up appointments. HENRIETTA Pena
== END 2023-06-04 15:32 | disposition home or self-care (01) | DRG 247 ==
LOC: ER 04:56 → 2ND 06:13
PROVIDERS: Internal Medicine; Admitting Provider Family Medicine; Emergency Provider Emergency Medicine; PCP Family Medicine; Visit Provider Family Medicine
PROC: 027035Z Dilation of Coronary Artery, One Artery with Two Drug-eluting Intraluminal Devices, Percutaneous Approach (ICD-10-PCS; principal; 2023-06-03 12:00)
DX: I21.4 Non-ST elevation (NSTEMI) myocardial infarction (principal); I25.110 Atherosclerotic heart disease of native coronary artery with unstable angina pectoris; E11.9 Type 2 diabetes mellitus without complications; E66.9 Obesity, unspecified; Z68.38 Body mass index [BMI] 38.0-38.9, adult; I10 Essential (primary) hypertension; E78.5 Hyperlipidemia, unspecified; Z87.891 Personal history of nicotine dependence; Z79.84 Long term (current) use of oral hypoglycemic drugs
CPT/HCPCS: 0715T; 36415; 71046; 80048; 80061; 80076; 82962; 83735; 84145; 84484; 85025; 85347; 85651; 86140; 87636; 92941; 93005; 93306; 93458; 99152; 99153; 99285; C1725; C1761; C1769; C1876; C9606; J1644; Q9967

== ENCOUNTER → 2023-06-11 08:24 | Outpatient (CLI) | payer BC, OTHER, SELFPAY ==
[2023-06-11 08:40] LABS: Basophils % 0.3 % (0.1-2.0); Eosinophils # 0.2 K/mm3 (0.0-0.4); Eosinophils % 2.9 % (0.1-12.0); Hematocrit 44.7 % (42.0-52.0); Hemoglobin 15.4 g/dL (14.1-18.0); Lymphocytes # 2.3 K/mm3 (0.7-4.5); Lymphocytes % 27.7 % (10-50); Mean Corpuscular HGB Conc 34.5 g/dL (31.8-35.4); Mean Corpuscular Hemoglobin 30.5 pg (27.0-31.2); Mean Corpuscular Volume 88.3 fl (80-94); Mean Platelet Volume 7.8 fl (7.4-10.4); Monocytes # 0.5 K/mm3 (0.1-1.0); Monocytes % 6.7 % (1.7-9.3); Neutrophils # 5.1 K/mm3 (1.8-7.8); Neutrophils % 62.4 % (37.0-80.0); Platelet Count 281 K/mm3 (142-424); Red Blood Count 5.06 M/mm3 (4.60-6.20); Red Cell Distribution Width 14.6 % (11.5-17.5); White Blood Count 8.2 K/mm3 (4.8-10.8)
[2023-06-11 09:02] LABS: Anion Gap 13.7 mEq/L (5-15); Blood Urea Nitrogen 20 mg/dl (9-20); Calcium 9.2 mg/dl (8.4-10.2); Carbon Dioxide 24 mmol/L (22.0-30.0); Chloride 106 mmol/L (98-107); Estimated Glomerular Filt Rate 88 ml/min (>60); GFR (African American) 107 ML/MIN (>60); Glucose 157 mg/dl (74-100); Potassium 4.7 mmoL/L (3.5-5.1); Sodium 139 mmol/L (136-145)
== END ==
PROVIDERS: PCP Family Medicine; Visit Provider Internal Medicine
DX: I25.10 Atherosclerotic heart disease of native coronary artery without angina pectoris (principal); Z95.5 Presence of coronary angioplasty implant and graft
CPT/HCPCS: 36415; 80048; 85025

== ENCOUNTER 2023-10-19 06:40 | Emergency (ER) | payer BC, OTHER, SELFPAY ==
[2023-10-19 06:43] VITALS: RESP 18; TEMP 36.6; O2SAT 97; BMI 35.2
--- NOTE | 2023-10-19 06:48 | HMH.EDGENADL ---
Discharge Plan Disposition Patient Disposition: Home, Self-Care Condition: Good Prescriptions Prescriptions: New amoxicillin 500 mg tablet 500 mg PO BID 10 Days Qty: 20 0RF No Action carvedilol 3.125 mg tablet 3.125 mg PO BID Qty: 60 2RF Rx Instructions: must administer with a meal/food lisinopril 5 mg tablet 5 mg PO DAILY Qty: 30 2RF Ozempic 0.25 mg or 0.5 mg (2 mg/3 mL) pen injector 0.25 mg SQ WEEKLY Qty: 3 2RF Rx Instructions: for 4 weeks metformin 500 mg tablet 500 mg PO DAILY Patient Comments: TAKE 1 TABLET BY MOUTH ONCE DAILY ezetimibe 10 mg tablet 10 mg PO DAILY Patient Comments: TAKE 1 TABLET BY MOUTH ONCE DAILY Farxiga 10 mg tablet 10 mg PO DAILY Patient Comments: TAKE 1 TABLET BY MOUTH ONCE DAILY aspirin 81 mg Tablet,Delayed Release (Dr/Ec) 81 mg PO DAILY atorvastatin 40 mg Tablet 40 mg PO HS Qty: 30 5RF clopidogrel 75 mg Tablet 75 mg PO DAILY Qty: 30 5RF Referrals Follow up/Referrals: Demetris Nelson MD [Primary Care Provider] - See instructions Activity Restrictions/Add. Instructions Additional Instructions/Restrictions: Please pickling grader your prescription for antibiotics and take the full course as prescribed. Take Tylenol and ibuprofen at home as needed for pain. Make sure that you are staying hydrated. Please follow-up with your primary care provider. Please return to the emergency department if you develop any new or worsening symptoms or become concerned for your health. Clinical Impressions Clinical Impression: Acute sore throat, Congested nose, COVID-19, Strep pharyngitis Instructions Patient Instructions: DI for Strep Throat, DI for COVID-19 (Suspected or Confirmed ) Discharge ED Provider: Taylor Tompkins General Adult HPI <Seven Hinojosa MD - Last Filed: 10/19/23 06:53> General Chief complaint: Upper Respiratory Infection Stated complaint: SORE THROAT,COUGH,HEAD CONGESTION Time Seen by Provider: 10/19/23 06:40 History of Present Illness HPI narrative: 53-year-old male, reported history of coronary artery disease presents with sore throat worsening since Thursday and 1 day of worsening congestion with intermittent cough. He reports no shortness of breath. Reports no fever at home. Reports no chest pain. Reports that he still able to eat and drink but it is sometimes painful. Reports concern for strep throat or flu. Related Data Home Medications Medication Instructions Recorded Confirmed aspirin 81 mg tablet,delayed 81 mg PO DAILY heart health 06/03/23 10/19/23 release dapagliflozin propanediol 10 mg 10 mg PO DAILY Diabetes 06/03/23 10/19/23 tablet (Farxiga) ezetimibe 10 mg tablet 10 mg PO DAILY Cholesterol 06/03/23 10/19/23 metformin 500 mg tablet 500 mg PO DAILY Diabetes 06/03/23 10/19/23 Previous Rx's Medication Instructions Recorded atorvastatin 40 mg tablet 40 mg PO HS #30 tabs 06/04/23 clopidogrel 75 mg tablet 75 mg PO DAILY #30 tabs 06/04/23 carvedilol 3.125 mg tablet 3.125 mg PO BID #60 tabs 08/12/23 lisinopril 5 mg tablet 5 mg PO DAILY #30 tabs 08/12/23 semaglutide 0.25 mg or 0.5 mg (2 0.25 mg (0.368 mL) SQ WEEKLY #3 mL 09/11/23 mg/3 mL) subcutaneous pen injector ([employer]) amoxicillin 500 mg tablet 500 mg PO BID 10 days #20 tabs 10/19/23 Allergies Allergy/AdvReac Type Severity Reaction Status Date / Time No Known Drug Allergies Allergy Unknown Verified 09/23/23 09:51 [NO KNOWN DRUG ALLERGIES] [facility] <Seven Hinojosa MD - Last Filed: 10/19/23 06:53> [facility] Disclaimer: The information contained in this section may have been updated after the patient was seen, as this information can be updated by other users. Medical History Angina pectoris CAD in [place] artery Coronary artery disease Diabetes mellitus, type 2 Diastolic dysfunction History of chest pain History of left heart catheterizat
[2023-10-19 06:52] VITALS: BP 130/86; PULSE 107
[2023-10-19 06:54] LABS: Influenza A, PCR Not Detected (NotDetected); Influenza B, PCR Not Detected (NotDetected)
[2023-10-19 07:01] VITALS: BP 113/73; PULSE 101; O2SAT 96
[2023-10-19 07:06] LABS: Strep Scrn Group A (Rapid) Positive (Negative)
[2023-10-19 07:16] VITALS: BP 135/70; PULSE 89; O2SAT 94
[2023-10-19 07:19] LABS: Coronavirus 19, PCR Detected (NotDetected)
[2023-10-19 07:35] VITALS: BP 120/77; PULSE 87; RESP 20; TEMP 36.6; O2SAT 97
== END 2023-10-19 07:37 | disposition home or self-care (01) ==
PROVIDERS: Emergency Medicine; Emergency Provider Emergency Medicine; PCP Family Medicine
DX: U07.1 COVID-19 (principal); J02.0 Streptococcal pharyngitis; R07.0 Pain in throat; R05.9 Cough, unspecified; R09.81 Nasal congestion; I25.119 Atherosclerotic heart disease of native coronary artery with unspecified angina pectoris; I11.9 Hypertensive heart disease without heart failure; E78.5 Hyperlipidemia, unspecified; E11.9 Type 2 diabetes mellitus without complications; Z79.4 Long term (current) use of insulin
CPT/HCPCS: 87430; 87636; 99283

== ENCOUNTER 2024-04-07 08:02 | Outpatient (CLI) | payer BC, OTHER, SELFPAY ==
--- NOTE | 2024-04-07 08:07 | CA_ITS ---
APPROVED REPORT EXAM: Comprehensive 2D, Doppler, and color-flow Echocardiogram Dividing Machine Operator: Maricruz Phelan RT(R) Ht: 5 ft 6 in Wt: 225lbs BSA: 2.10 BP: 126/86 mmHg Indications: CAD, HTN, CP, DM, hyperlipidemia, DD 2D Dimensions LA Volume 23.30 mL LA Volume Index 11.10 mL/m2 (M/F) 16-34 EF AP4 43.50 % GL Strain -12.9 % M-Mode Dimensions RVDd 2.09 cm (0.9-2.6) LA Diam 3.99 cm (1.9-4.0) LVDd 5.05 cm (3.5-5.7) LVDs 3.69 cm (3.5-5.7) IVSd 0.83 cm (0.6-1.1) PWd 0.97 cm (0.6-1.1) EF (Teich) 52.20% FS 26.90% EDV (Teich) 121.00 mL ESV (Teich) 57.80 mL LV Diastology E Decel Time 193 (160-240 msec) E/A Ratio 0.8 Mitral Valve MV E Max Bennie. 62.0 (40-130 cm/s) MV A Velocity 79.0 (40-130 cm/s) E/A Ratio 0.78 MV PHT 57.0 ms Left Ventricle The left ventricle is normal size. The left ventricular systolic function is normal. The left ventricular ejection fraction is within the normal range. There is increased LV wall thickness. There is normal LV segmental wall motion. Transmitral Doppler flow pattern suggests impaired LV relaxation. LVEF is 50-55%. Right Ventricle The right ventricle is normal size. The right ventricular systolic function is normal. Atria The left atrium size is normal. The right atrium size is normal. There is no Doppler evidence of interatrial shunt. Aortic Valve The aortic valve opens well. There is no aortic valvular stenosis. No aortic regurgitation is present. Mitral Valve The mitral valve is normal in structure. No evidence of mitral valve stenosis. There is no mitral valve regurgitation noted. Tricuspid Valve The tricuspid valve leaflets are thin and pliable. Trace tricuspid regurgitation. There is insufficient TR jet to estimate RVSP. Pulmonic Valve The pulmonary valve is normal in structure. Trace pulmonic regurgitation. Great Vessels The aortic root is normal in size. The ascending aorta is not well-visualized. IVC is normal in size and collapses >50% with inspiration. Pericardium There is no pericardial effusion. Other Information Study Quality: Fair Conclusion Normal biventricular systolic function. No significant valvular stenosis or regurgitation. Electronically signed by : Meagan Jaramillo MD 04/10/2024 00:01:15
== END 2024-04-07 23:59 | disposition home or self-care (01) ==
LOC: RT 08:02
PROVIDERS: PCP Family Medicine; Visit Provider Nurse Practitioner
DX: I25.10 Atherosclerotic heart disease of native coronary artery without angina pectoris (principal); I50.41 Acute combined systolic (congestive) and diastolic (congestive) heart failure; I51.89 Other ill-defined heart diseases; I51.9 Heart disease, unspecified; Z95.5 Presence of coronary angioplasty implant and graft; I10 Essential (primary) hypertension; E78.5 Hyperlipidemia, unspecified; E11.9 Type 2 diabetes mellitus without complications; E66.9 Obesity, unspecified; Z68.38 Body mass index [BMI] 38.0-38.9, adult; R94.31 Abnormal electrocardiogram [ECG] [EKG]
CPT/HCPCS: 93306

== ENCOUNTER 2024-09-27 09:08 | Outpatient (CLI) | payer BC, OTHER, SELFPAY ==
[2024-09-27 09:28] LABS: Basophils # 0.1 K/mm3 (0-0.2); Basophils % 0.6 % (0.1-2.0); Eosinophils # 0.3 K/mm3 (0.0-0.4); Eosinophils % 2.9 % (0.1-12.0); Hematocrit 50.4 % (42.0-52.0); Hemoglobin 17.5 g/dL (14.1-18.0); Lymphocytes # 2.2 K/mm3 (0.7-4.5); Lymphocytes % 25.9 % (10-50); Mean Corpuscular HGB Conc 34.8 g/dL (31.8-35.4); Mean Corpuscular Hemoglobin 32.1 pg (27.0-31.2); Mean Corpuscular Volume 92.5 fl (80-94); Mean Platelet Volume 7.2 fl (7.4-10.4); Monocytes # 0.5 K/mm3 (0.1-1.0); Monocytes % 5.4 % (1.7-9.3); Neutrophils # 5.6 K/mm3 (1.8-7.8); Neutrophils % 65.1 % (37.0-80.0); Platelet Count 242 K/mm3 (142-424); Red Blood Count 5.45 M/mm3 (4.60-6.20); Red Cell Distribution Width 14.5 % (11.5-17.5); White Blood Count 8.6 K/mm3 (4.8-10.8)
[2024-09-27 09:49] LABS: Alanine Aminotransferase 36 U/L (12-78); Albumin Level 4.6 g/dl (3.5-5.0); Alkaline Phosphatase 85 U/L (38-126); Anion Gap 19.4 mEq/L (5-15); Aspartate Amino Transferase 30 U/L (17-59); Bilirubin,Direct 0.2 mg/dl (0.0-0.4); Bilirubin,Indirect 0.9 mg/dL (0.0-0.9); Bilirubin,Total 1.1 mg/dl (0.2-1.3); Bilirubin,Unconjugated 0.9 mg/dL (0.0-1.1); Blood Urea Nitrogen 20 mg/dl (9-20); Calcium 9.5 mg/dl (8.4-10.2); Carbon Dioxide 22 mmol/L (22.0-30.0); Chloride 100 mmol/L (98-107); Chol/HDL Ratio 3.9 (1-3.5); Cholesterol 124 mg/dl (140-200); Estimated Glomerular Filt Rate 88 ml/min (>60); GFR (African American) 106 ML/MIN (>60); Glucose 137 mg/dl (74-100); HDL Cholesterol 32 mg/dl (40-60); Magnesium 1.6 mg/dl (1.6-2.3); Potassium 4.4 mmoL/L (3.5-5.1); Sodium 137 mmol/L (136-145); Total Protein,Serum 7.6 g/dl (6.3-8.2); Triglycerides 355 mg/dl (30-150); VLDL Cholesterol 71 mg/dL (0-40)
[2024-09-27 10:02] LABS: Direct LDL Cholesterol 58.56 mg/dL (100-129)
[2024-09-27 10:06] LABS: Free T4 (Free Thyroxine) 0.83 ng/dl (0.78-2.19)
[2024-09-27 10:19] LABS: Thyroid Stimulating Hormone 1.33 uIU/mL (0.465-4.68)
== END 2024-09-27 23:59 | disposition home or self-care (01) ==
LOC: LAB 09:09
PROVIDERS: PCP Family Medicine; Visit Provider Nurse Practitioner
DX: I25.10 Atherosclerotic heart disease of native coronary artery without angina pectoris (principal); I50.41 Acute combined systolic (congestive) and diastolic (congestive) heart failure; I51.89 Other ill-defined heart diseases; I51.9 Heart disease, unspecified; Z95.5 Presence of coronary angioplasty implant and graft; I10 Essential (primary) hypertension; E78.2 Mixed hyperlipidemia; E11.9 Type 2 diabetes mellitus without complications
CPT/HCPCS: 36415; 80048; 80061; 80076; 83735; 84439; 84443; 85025

== ENCOUNTER 2024-10-14 18:22 | Emergency (ER) | payer BC, OTHER, SELFPAY ==
[2024-10-14 18:50] VITALS: BP 143/80; PULSE 91; RESP 20; TEMP 37.5; O2SAT 96; BMI 38.4
--- NOTE | 2024-10-14 18:58 | EXP.UTC ---
Discharge Plan Disposition Patient Disposition: Home, Self-Care Condition: Good Prescriptions Prescriptions: New cephalexin 500 mg capsule 500 mg PO QID Qty: 40 0RF ciprofloxacin-dexamethasone 0.3-0.1 % Drops,Suspension 2 drp OTIC (EAR) BID 7 Days Qty: 1 0RF sulfamethoxazole-trimethoprim [Bactrim DS] 800-160 mg Tablet 1 tab PO BID 10 Days Qty: 20 0RF No Action atorvastatin 40 mg tablet 40 mg PO DAILY clopidogrel 75 mg tablet 75 mg PO DAILY carvedilol 3.125 mg tablet 3.125 mg PO DAILY lisinopril 5 mg tablet 5 mg PO DAILY ezetimibe 10 mg tablet 10 mg PO DAILY dapagliflozin propanediol [Farxiga] 10 mg tablet 10 mg PO DAILY Ozempic 0.25 mg or 0.5 mg (2 mg/3 mL) pen injector 0.25 mg SQ WEEKLY Patient Comments: INJECT 0.5 MG SUBCUTANEOUSLY ONCE A WEEK Referrals Follow up/Referrals: Demetris Nelson MD [Primary Care Provider] - See instructions Activity Restrictions/Add. Instructions Additional Instructions/Restrictions: Take the medications as directed. Use the ear drops as directed. Follow up with your regular doctor. GO TO THE ER FOR ANY WORSENING SYMPTOMS Apply warm wet compresses to the affected area around your ear 3 times per day for a few minutes each time for the next few days. Clinical Impressions Clinical Impression: External otitis of right ear, Cellulitis of right external ear, Diabetes Instructions Patient Instructions: How to Instill Ear Drops, Cellulitis, DI for Otitis Externa Print Language Print Language: Urdu Discharge ED Provider: Ra Issa [facility] General Stated complaint: knot under RT ear Time Seen by Provider: 10/14/24 18:57 Related Data Home Medications ?Medication ?Instructions ?Recorded ?Confirmed atorvastatin 40 mg tablet 40 mg PO DAILY 10/14/24 10/14/24 carvedilol 3.125 mg tablet 3.125 mg PO DAILY 10/14/24 10/14/24 clopidogrel 75 mg tablet 75 mg PO DAILY 10/14/24 10/14/24 dapagliflozin propanediol 10 mg 10 mg PO DAILY 10/14/24 10/14/24 tablet (Farxiga) ezetimibe 10 mg tablet 10 mg PO DAILY 10/14/24 10/14/24 lisinopril 5 mg tablet 5 mg PO DAILY 10/14/24 10/14/24 semaglutide 0.25 mg or 0.5 mg (2 0.25 mg SQ WEEKLY 10/14/24 10/14/24 mg/3 mL) subcutaneous pen injector (Ozempic) Previous Rx's ?Medication ?Instructions ?Recorded cephalexin 500 mg capsule 500 mg PO QID #40 caps 10/14/24 ciprofloxacin 0.3 %-dexamethasone 2 drp otic (ear) BID 7 days #1 ea 10/14/24 0.1 % ear drops,suspension sulfamethoxazole 800 1 tab PO BID 10 days #20 tabs 10/14/24 mg-trimethoprim 160 mg tablet (Bactrim DS) Allergies Allergy/AdvReac Type Severity Reaction Status Date / Time No Known Drug Allergies (NO Allergy Unknown Verified 09/27/24 08:46 KNOWN DRUG ALLERGIES) [facility] Disclaimer: The information contained in this section may have been updated after the patient was seen, as this information can be updated by other users. Medical History Coronary artery disease Diastolic dysfunction LV dysfunction Angina pectoris CAD in [place] artery Kidney stone Pneumonia Diabetes mellitus, type 2 Hyperlipidemia Hypertension History of chest pain History of left heart catheterization Laceration of forearm with foreign body Surgical History Stented coronary artery Hx of cataract surgery History of surgery on wrist Family History Other Coronary artery disease Family history of acute congestive heart failure Family history of hyperlipidemia Family history of hypertension Heart attack Social History Smoking Status: Never smoker how long ago did patient quit smokin years ago alcohol intake: never current occupational status: employed and other Travel in the last 8 weeks: None ROS Obtained: Yes All systems reviewed & no additional complaints except as documented Constitutional Constitutional: Denies chills and Denies fever(s) Eyes Eyes: Denies eye discharge ENT Ears, Nose, Mouth, and Throat: Denies dizziness, Denies otalgia and Denies sore throat Cardiovascular Cardiovascular: Denies chest pain Respiratory Respiratory: Denies shortness of breath, Denies chest congestion, Denies cough, Denies stridor and Denies wheezing Gastrointestinal Gastrointestingal: Denies nausea or vomiting Musculoskeletal Musculoskeletal: Reports system reviewed and no additional complaints, except as documented and Denies arthralgias Integumentary/Breasts Skin/Breast: Denies rash Neurologic Neurologic: Denies dizziness and Denies paresthesias Allergic/Immunologic Allergic/Immunologic: Denies wheezing Physical Exam General General appearance: alert and in no apparent distress Head Head exam: atraumatic, normocephalic and normal inspection Eye Eye exam: Present normal appearance, PERRL and EOMI ENT ENT exam: Present normal oropharynx, mucous membranes moist, TM's normal bilaterally and normal external ear exam Expanded ENT Exam External ear exam: Present pain with movement and external tenderness TM/Canal exam: Right TM: erythema and canal discharge Neck Neck exam: Present normal inspection, full ROM and trachea midline; Absent meningismus or lymphadenopathy Chest Chest inspection: Present normal inspection and symmetric chest wall rise; Absent tenderness Respiratory Respiratory exam: Present normal lung sounds bilaterally; Absent respiratory distress Cardiovascular Cardiovascular exam: Present regular rate and normal rhythm; Absent JVD Abdominal Exam Abdominal exam: Present soft and normal bowel sounds; Absent distention, tenderness or guarding Extremities Exam Extremities exam: Present normal inspection, full ROM and normal capillary refill; Absent calf tenderness Back Exam Back exam: Present normal inspection; Absent tenderness Neurological Exam Neurological exam: Present alert and oriented X3 Psychiatric Psychiatric exam: Present normal affect and normal mood Skin Skin exam: Present warm, dry, intact and normal color Lymphatic Lymphatic Findings: no adenopathy Medical Decision Making Medical Records Medical records reviewed: No I reviewed the patient's medical records. Screening: Per USPSTF and CDC recommendations, given the prevalence of disease in our region, it is our hospital?s policy to screen for HIV and viral Hepatitis for all patients aged 18 and over and those with ongoing risk factors. [place]ell Inquiry Pt receiving controlled substance: No
[2024-10-14] MEDS: cefTRIAXone 1GM VIAL 1 GM IM (19:20)
[2024-10-14] MEDS: LIDOCAINE 1% 5ML PF VIAL IM (19:20)
[2024-10-14 19:33] VITALS: BP 143/80; PULSE 91; RESP 20; TEMP 37.5; O2SAT 96
--- NOTE | 2024-10-20 09:53 | PC.NURSE ---
PATIENT'S EAR CULTURE REVIEWED BY Demetris AUGUSTIN APRN. SPOKE WITH PATIENT WHO STATES HIS EAR IS A LOT BETTER AND ALMOST BACK TO NORMAL. ADVISED PATIENT TO CONTINUE MEDICATIONS AND FOLLOW UP WITH PCP IF NEEDED. PATIENT VERBALIZED UNDERSTANDING
== END 2024-10-14 19:39 | disposition home or self-care (01) ==
PROVIDERS: Emergency Provider Nurse Practitioner Family; PCP Family Medicine
DX: E11.9 Type 2 diabetes mellitus without complications (principal); H60.91 Unspecified otitis externa, right ear
CPT/HCPCS: 87070; 87077; 87186; 87205; 96372; 99213; G0381; J0696

== ENCOUNTER 2025-04-10 09:15 | Day surgery (SDC) | payer BC, OTHER, SELFPAY ==
[2025-04-07 15:19] VITALS: BMI 36.0
[2025-04-10 10:28] VITALS: BP 165/88; PULSE 89; RESP 18; TEMP 36.2; O2SAT 97
[2025-04-10] MEDS: LACTATED RINGERS 1000ML 1,000 ML 50 ML IV (10:41)
[2025-04-10 10:47] LABS: POC Glucose,Bedside 109 (70-110)
--- NOTE | 2025-04-10 10:55 | EXP.HP ---
History of Present Illness *Admission Date: 04/10/25 *Reason for visit:: Screening for colon cancer *History of present illness: Mr. Buck is a 54-year-old gentleman who is here for initial screening colonoscopy. The examination is deemed medically necessary for screening colonoscopy. The patient has been seen, interviewed and examined prior to the procedure by both myself and the anesthesia provider. [facility] Disclaimer: The information contained in this section may have been updated after the patient was seen, as this information can be updated by other users. Medical History Coronary artery disease Diastolic dysfunction LV dysfunction Angina pectoris CAD in [place] artery Kidney stone Pneumonia Diabetes mellitus, type 2 Hyperlipidemia Hypertension History of chest pain History of left heart catheterization Laceration of forearm with foreign body Surgical History Stented coronary artery Hx of cataract surgery History of surgery on wrist Family History Other Coronary artery disease Family history of acute congestive heart failure Family history of hyperlipidemia Family history of hypertension Heart attack Social History (Updated 04/10/25 @ 10:37 by Marylou Buck RN) Smoking Status: Never smoker how long ago did patient quit smokin years ago alcohol intake: current substance use type: denies use current occupational status: employed Travel in the last 8 weeks?: None caffeine: Yes Other Medical History Have you received the Flu Vaccine for this season: No Have you received the Pneumonia Vaccine: No Review of Systems Review of Systems Review of systems (narrative): Negative *Cardiovascular Comments: Negative *Gastrointestinal Comments: Negative *Genitourinary Comments: Negative *Musculoskeletal Comments: Negative *Neurologic Comments: Negative Meds Home Medications and Allergies Home Medications ?Medication ?Instructions ?Recorded ?Confirmed ?Type atorvastatin 40 mg tablet 40 mg PO DAILY 10/14/24 04/07/25 History dapagliflozin propanediol 10 mg 10 mg PO DAILY 10/14/24 04/07/25 History tablet (Farxiga) ezetimibe 10 mg tablet 10 mg PO DAILY 10/14/24 04/07/25 History lisinopril 5 mg tablet 5 mg PO DAILY 10/14/24 04/10/25 History semaglutide 0.25 mg or 0.5 mg (2 0.25 mg SQ WEEKLY 10/14/24 04/10/25 History mg/3 mL) subcutaneous pen injector (Ozempic) sodium,potassium,mag sulfates 17.5 See Rx Instructions PO .COMPLEX 03/27/25 Rx gram-3.13 gram-1.6 gram oral soln #354 mL (Suprep Bowel Prep Kit) aspirin 81 mg tablet,delayed 81 mg PO DAILY 04/07/25 04/07/25 History release New Prescriptions to Start Prescriptions: Allergies Allergy/AdvReac Type Severity Reaction Status Date / Time No Known Allergies Allergy Verified 04/10/25 10:26 Exam Data for Last 24 hours Vital signs and Labs for Last 24 Hours: Temp Pulse Resp BP Pulse Ox O2 Del Method 97.1 F L 89 18 165/88 H 97 Room Air 04/10/25 10:28 04/10/25 10:28 04/10/25 10:28 04/10/25 10:28 04/10/25 10:28 04/10/25 10:28 Laboratory Results - last 24 hr 04/10/25 10:41: POC Glucose 109 I & O for Last 24 hours: Intake & Output 04/07/25 04/08/25 04/09/25 04/10/25 23:59 23:59 23:59 23:59 Weight 230 lb *Routine HEENT Exam Head: Present normocephalic Eye: Present EOMI and PERRL ENT: Present mucous membranes moist *Routine Neck Exam Neck: Present supple *Routine Respiratory Exam Respiratory: Present CTA bilaterally *Routine Cardiovascular Exam Cardiovascular: Present RRR *Routine Abdominal Exam Abdominal: Present soft and normoactive bowel sounds; Absent tenderness *Routine Rectal Exam Rectal:: deferred *Routine Genitalia Exam Genitalia:: deferred *Routine Extremities Exam Extremities: Absent cyanosis, clubbing or edema *Routine Skin Exam Skin: Present warm; Absent rash *Routine Neurological Exam Neurological: Present alert and oriented X3 Assessment and Plan *Assessment and plan (1) Screening for colon cancer: Status: Acute Category: Medical Code(s): Z12.11 - Encounter for screening for malignant neoplasm of colon Plan A/P: 1. Screening for colon cancer is the preprocedural diagnosis. The patient will be anesthetized/sedated using MAC sedation. The patient has been seen and examined. Cardiac and lung assessment prior to the examination is stable. Proceed with planned screening colonoscopy.
--- NOTE | 2025-04-10 10:56 | EXP.ANES.CKL ---
[facility] Disclaimer: The information contained in this section may have been updated after the patient was seen, as this information can be updated by other users. Medical History Coronary artery disease Diastolic dysfunction LV dysfunction Angina pectoris CAD in [place] artery Kidney stone Pneumonia Diabetes mellitus, type 2 Hyperlipidemia Hypertension History of chest pain History of left heart catheterization Laceration of forearm with foreign body Surgical History Stented coronary artery Hx of cataract surgery History of surgery on wrist Family History Other Coronary artery disease Family history of acute congestive heart failure Family history of hyperlipidemia Family history of hypertension Heart attack Social History (Updated 04/10/25 @ 10:37 by Marylou Buck RN) Smoking Status: Never smoker how long ago did patient quit smokin years ago alcohol intake: current substance use type: denies use current occupational status: employed Travel in the last 8 weeks?: None caffeine: Yes [facility] Anesthesia Checklist Patient Identification Patient Identification: Arm Band Structural Data Admitted From: Home Planned Operative Procedure/s: Colonoscopy Consent for Planned Operative Procedure(s) Verified: Yes Verified Documents: Surgical Consent, History and Physical and Cardiac Clearance NPO Status Verified Time NPO: 06:30 (finished prep) Additional verifications Anesthesia Reactions: No Airway Assessment Mallampati Score:: Class II C-Spine Mobility Assessed: Yes TMJ Mobility Assessed: Yes Dentition: Good Dentition (upper dentures) Neurological Assessment Level of Consciousness: Awake, Alert and Appropriate Anesthesia Plan Anesthesia Risk discussed: Yes Anesthesia Plan: Verified ASA Class: III Anesthesia Type: MAC
[2025-04-10 11:00] VITALS: O2SAT 97
--- NOTE | 2025-04-10 11:05 | P.PCN_ITS ---
[facility] Procedure Note Date: 04/10/25 Time: 11:24 Procedure Note:: Colonoscopy Procedure Report: Colonoscopy with cold snare polypectomy Endoscopist: Ben Manzo II, MD Referring physician: Rome Nelson MD Date of Procedure: April 10, 2025 Equipment: Olympus 190 variable stiffness pediatric colonoscope Sedation: MAC sedation Indication: Mr. Buck is a 54-year-old gentleman who is here for initial screening colonoscopy. He reports no abdominal pain, weight loss, change in his bowel habits or rectal bleeding. He reports no family history of colon cancer. Procedure: Prior to the procedure, a history and physical exam was performed, and patient's medications and allergies were reviewed. The risks, benefits and alternatives of the sedation and procedure were discussed with the patient. All questions were answered and informed consent was obtained. The patient was brought to the procedure room. Patient identification and proposed procedure were verified by the physician and the nurse. The patient was placed in a left lateral decubitus position and the scope was passed under direct vision. Throughout the procedure, the patient's blood pressure, pulse, and oxygen saturations were monitored continuously. The colonoscopy was accomplished without difficulty. The patient tolerated the procedure well. Findings: On digital rectal examination there was normal rectal tone. There were no external hemorrhoids. The prostate was 2+, smooth, soft, symmetric without nodules. The colonoscope was introduced through the anal canal to the rectum and advanced to the cecum. The ileocecal valve and appendiceal orifice were identified. The scope was advanced a short distance into the ileum which appeared grossly normal. The scope was then withdrawn into the colon. The cecum, ascending, transverse, descending and sigmoid colon were grossly normal. Within the rectum, there were 3 polyps (3, 4 and 5 mm) which were all removed via cold snare polypectomy. Upon retroflexion within the rectum there were grade 1-2 internal hemorrhoids. The preparation was excellent throughout with [place] Preparation Score of 9. The cecal time was 12 minutes. Impression: 1. Diminutive rectal polyps x 3 2. Grade 1-2 internal hemorrhoids Plan: I will follow-up the polyp histology and recommend repeat surveillance colonoscopy again in 5 to 7 years based upon the pathology. I would encourage psyllium bulking fiber supplementation on a maintenance basis.
[2025-04-10 11:26] VITALS: BP 107/69; PULSE 86; RESP 16; TEMP 37; O2SAT 100
[2025-04-10 11:36] VITALS: BP 110/56; PULSE 80; RESP 16; TEMP 36.7; O2SAT 95
[2025-04-10 11:46] VITALS: BP 111/71; PULSE 78; RESP 18; TEMP 36.2; O2SAT 94
[2025-04-10 11:56] VITALS: BP 129/78; PULSE 75; RESP 18; TEMP 36.3; O2SAT 97
== END 2025-04-10 12:05 | disposition home or self-care (01) ==
PROVIDERS: PCP Family Medicine; Visit Provider Internal Medicine Gastroenterology
PROC: 0DJD8ZZ Inspection of Lower Intestinal Tract, Via Natural or Artificial Opening Endoscopic (ICD-10-PCS; CPT 45378; principal; 2025-04-10 11:00)
DX: Z12.11 Encounter for screening for malignant neoplasm of colon (principal); K63.5 Polyp of colon; D12.7 Benign neoplasm of rectosigmoid junction; K64.8 Other hemorrhoids
CPT/HCPCS: 45385; 82962; J7120